=== PATIENT | female | born 2000 | race Caucasian/White ===

== ENCOUNTER 2022-05-04 21:14 | Emergency (ER) | payer SELFPAY ==
[2022-05-05] MEDS ORDERED: Ketorolac Tromethamine 30 MG/ML VIAL ONE (00:02)
[2022-05-05] MEDS ORDERED: Cyclobenzaprine 10 MG TAB ONE (00:02)
== END 2022-05-04 23:40 | disposition home or self-care (01) ==
LOC: CSHERS 21:14
DX: M79.605 Pain in left leg (principal)
CPT/HCPCS: 96372

== ENCOUNTER 2024-02-05 19:09 | Day surgery (SDC) | payer BC ==
[2024-02-05 19:48] VITALS: BMI 39.4
[2024-02-05] MEDS ORDERED: hydrALAZINE 20 MG/ML VIAL SLOW IVP PRN (19:52)
[2024-02-05] MEDS: diphenhydrAMINE 50 MG/ML VIAL IVP PRN (20:15)
[2024-02-05] MEDS: Metoclopramide HCl 10 MG (2 mL) VIAL IVP SCH (20:16)
== END 2024-02-05 21:18 | disposition home or self-care (01) ==
LOC: CSHLD/OP 19:09
PROVIDERS: ATTEND Obstetrics & Gynecology
DX: O99.891 Other specified diseases and conditions complicating pregnancy (principal); R51.9 Headache, unspecified; O99.342 Other mental disorders complicating pregnancy, second trimester; F41.9 Anxiety disorder, unspecified; Z3A.24 24 weeks gestation of pregnancy; Z88.0 Allergy status to penicillin; Z88.5 Allergy status to narcotic agent; Z88.8 Allergy status to other drugs, medicaments and biological substances; Z90.89 Acquired absence of other organs; Z79.899 Other long term (current) drug therapy
CPT/HCPCS: J1200; J2765

== ENCOUNTER 2024-02-17 17:43 | Day surgery (SDC) | payer BC ==
[2024-02-17 18:17] VITALS: BMI 38.2
[2024-02-17] MEDS ORDERED: hydrALAZINE 20 MG/ML VIAL SLOW IVP PRN (19:03)
[2024-02-17 19:41] LABS: #Basophils 0.08 10x3/uL (0.0-0.2); #Eosinphils 0.14 10x3/uL (0.0-0.5); #Monocytes 1.39 10x3/uL (0.0-1.1); #Neutrophils 12.66 10x3/uL (1.5-8.4); %Basophils 0.4 % (0.0-2.0); %Eosinophils 0.7 % (0.0-6.0); %Lymphocytes 23.2 % (18.0-47.0); %Monocytes 7.4 % (0.0-10.0); %Neutrophils 67.8 % (40.0-75.0); Hematocrit 34.3 % (34.9-44.5); Hemoglobin 12.1 g/dL (12.0-15.5); Mean Corpuscular HGB CONC 35.3 g/dL (32.0-36.0); Mean Corpuscular Hemoglobin 30.9 pg (27.0-33.0); Mean Corpuscular Volume 87.5 fL (81.6-98.3); Mean Platelet Volume 10.5 fL (7.4-10.4); Platelet Count 282 10x3/uL (150-450); RBC Distribution Width 12.6 % (11.5-14.5); Red Blood Cell (RBC) Count 3.92 10x6/uL (3.90-5.03); White Blood Cell (WBC) Count 18.7 10x3/uL (3.5-10.5)
[2024-02-17 19:53] LABS: ALT (SGPT) 13 U/L (8-55); AST (SGOT) 15 U/L (5-34); Albumin 3.2 g/dL (3.5-5.0); Alkaline Phosphatase 51 U/L (40-110); Anion Gap 14 mmol/L (10-20); BUN (Urea Nitrogen) 4 mg/dL (7.0-18.7); Bilirubin, Total 0.2 mg/dL (0.2-1.2); Calc. Creatinine Clearance 257 mL/min (70-130); Calcium 9.4 mg/dL (7.8-10.44); Carbon Dioxide 21 mmol/L (22-29); Chloride 106 mmol/L (98-107); Estimated GFR 133; Globulin 3.4 g/dL (2.4-3.5); Glucose 82 mg/dL (70-105); Potassium 3.8 mmol/L (3.5-5.1); Protein, Total 6.6 g/dL (6.0-8.3); Sodium 137 mmol/L (136-145)
[2024-02-17 19:55] LABS: Creatinine, Urine 41.41 mg/dL (47-110); Protein, Urine Random Quant Less than 10 mg/dL (1-14)
== END 2024-02-17 20:15 | disposition home or self-care (01) ==
LOC: CSHLD/OP 17:43
PROVIDERS: ATTEND Obstetrics & Gynecology
DX: O99.891 Other specified diseases and conditions complicating pregnancy (principal); R51.9 Headache, unspecified; O99.212 Obesity complicating pregnancy, second trimester; O10.912 Unspecified pre-existing hypertension complicating pregnancy, second trimester; H53.8 Other visual disturbances; Z88.8 Allergy status to other drugs, medicaments and biological substances; Z88.5 Allergy status to narcotic agent; Z88.0 Allergy status to penicillin; Z3A.25 25 weeks gestation of pregnancy; Z79.899 Other long term (current) drug therapy
CPT/HCPCS: 36415; 80053; 82570; 84156; 85025

== ENCOUNTER 2024-03-15 09:03 | Emergency (ER) | payer BC ==
[2024-03-15] MEDS ORDERED: Morphine 2 MG/ML VIAL ONE (10:30)
[2024-03-15] MEDS ORDERED: Acetaminophen 325 MG TAB ONE (10:31)
== END 2024-03-15 11:15 | disposition home or self-care (01) ==
LOC: CSHERS 09:03
DX: R25.2 Cramp and spasm (principal)
CPT/HCPCS: 36415; 85379; 96372; J2272

== ENCOUNTER 2024-03-17 18:48 | Emergency (ER) | payer BC ==
[2024-03-17 19:10] LABS: Bilirubin Neg (Negative); Blood, Urine Negative (Negative); Clarity Clear (Clear); Glucose, Urine (Dipstick) Normal (Negative); Ketone, Urine Negative (Negative); Leukocyte Negative (Negative); Nitrite Negative (Negative); Protein, Urine (Dipstick) Negative (Neg-Trace); Specific Gravity, Urine 1.015 (1.005-1.030); Urobilinogen Normal mg/dL (Less than 2); pH, Urine 6.5 (5.0-9.0)
[2024-03-17 19:28] LABS: Bacteria/HPF 1+ HPF (None Seen); CAUTI Indications for Culture Pregnancy; RBC/HPF None Seen HPF (0-3); Squamous Epithelial 0-3 HPF (0-3); WBC/HPF None Seen HPF (0-3)
[2024-03-17 19:29] LABS: Urine Culture Reflex Yes Yes
[2024-03-17] MEDS ORDERED: Morphine 4 MG/ML VIAL ONE (20:02)
== END 2024-03-17 21:50 | disposition home or self-care (01) ==
LOC: CSHERS 18:48
DX: O99.891 Other specified diseases and conditions complicating pregnancy (principal); M54.42 Lumbago with sciatica, left side; O99.213 Obesity complicating pregnancy, third trimester; Z3A.30 30 weeks gestation of pregnancy
CPT/HCPCS: 72148; 81001; 87086; 96372; J2272

== ENCOUNTER 2024-04-08 17:12 | Day surgery (SDC) | payer BC ==
[2024-04-08 17:36] VITALS: BMI 38.9
[2024-04-08] MEDS ORDERED: hydrALAZINE 20 MG/ML VIAL SLOW IVP PRN (18:08)
[2024-04-08] MEDS ORDERED: Acetaminophen 500 MG TAB PO PRN (18:09)
[2024-04-08] MEDS ORDERED: Acetaminophen 500 MG TAB PO SCH (18:15)
== END 2024-04-08 19:08 | disposition home or self-care (01) ==
LOC: CSHLD/OP 17:12
PROVIDERS: ATTEND Obstetrics & Gynecology
DX: O47.03 False labor before 37 completed weeks of gestation, third trimester (principal); O99.343 Other mental disorders complicating pregnancy, third trimester; F41.9 Anxiety disorder, unspecified; Z79.899 Other long term (current) drug therapy; Z88.5 Allergy status to narcotic agent; Z88.0 Allergy status to penicillin; Z88.8 Allergy status to other drugs, medicaments and biological substances
CPT/HCPCS: 99282

== ENCOUNTER 2024-05-07 09:27 | Day surgery (SDC) | payer BC ==
[2024-05-07 10:16] VITALS: BMI 40.7
[2024-05-07] MEDS ORDERED: Ondansetron PF 4 MG/2 ML Vial ONE (10:27)
[2024-05-07] MEDS: Dextrose 5%-Lactated Ringers 1,000 ML IV SCH (11:20)
[2024-05-07] MEDS: Ondansetron PF 4 MG/2 ML Vial IVP SCH (11:20)
[2024-05-07] MEDS: Metoclopramide HCl 10 MG (2 mL) VIAL IVP SCH (11:20)
== END 2024-05-07 12:24 | disposition home or self-care (01) ==
LOC: CSHLD/OP 09:27
PROVIDERS: ATTEND Obstetrics & Gynecology
DX: O99.613 Diseases of the digestive system complicating pregnancy, third trimester (principal); K52.9 Noninfective gastroenteritis and colitis, unspecified; O21.2 Late vomiting of pregnancy; O99.891 Other specified diseases and conditions complicating pregnancy; R51.9 Headache, unspecified; Z79.899 Other long term (current) drug therapy; Z88.5 Allergy status to narcotic agent; Z88.2 Allergy status to sulfonamides; Z88.8 Allergy status to other drugs, medicaments and biological substances; Z3A.37 37 weeks gestation of pregnancy
CPT/HCPCS: 96360; 96361; 96374; 99282; J2405; J2765

== ENCOUNTER 2024-05-18 14:48 | Day surgery (SDC) | payer BC ==
[2024-05-18 15:19] VITALS: BMI 40.2
[2024-05-18] MEDS ORDERED: hydrALAZINE 20 MG/ML VIAL SLOW IVP PRN (15:41)
== END 2024-05-18 17:00 | disposition home or self-care (01) ==
LOC: CSHLD/OP 14:48
PROVIDERS: ATTEND Obstetrics & Gynecology
DX: O99.891 Other specified diseases and conditions complicating pregnancy (principal); R10.2 Pelvic and perineal pain; O99.343 Other mental disorders complicating pregnancy, third trimester; F32.A Depression, unspecified; O36.8330 Maternal care for abnormalities of the fetal heart rate or rhythm, third trimester, not applicable or unspecified; Z88.5 Allergy status to narcotic agent; Z88.1 Allergy status to other antibiotic agents; Z88.0 Allergy status to penicillin; Z3A.38 38 weeks gestation of pregnancy
CPT/HCPCS: 99282

== ENCOUNTER 2024-05-20 16:06 | Inpatient (IN) | payer BC ==
[2024-05-20] MEDS ORDERED: hydrALAZINE 20 MG/ML VIAL SLOW IVP PRN (21:13)
[2024-05-20] MEDS ORDERED: Ibuprofen 800 MG TAB PO PRN (21:13)
[2024-05-20] MEDS ORDERED: Lidocaine 1% (PF) 30 ML VIAL SC PRN (21:13)
[2024-05-20] MEDS ORDERED: HYDROcodone/Acetaminophen 5/325 mg Tablet PO PRN ×2 (21:13)
[2024-05-20] MEDS ORDERED: Promethazine HCl 25 MG/ML VIAL IM PRN (21:13)
[2024-05-20] MEDS ORDERED: Lactated Ringer's 1,000 ML IV SCH (21:13)
[2024-05-20] MEDS ORDERED: Oxytocin 30 units/NS 500 ML 500 ML IV SCH ×3 (21:13)
[2024-05-20 21:55] VITALS: BMI 41.2
[2024-05-20] MEDS ORDERED: Misoprostol 100 MCG TAB VAG SCH (22:00)
[2024-05-20 23:04] LABS: Hemoglobin 11.9 g/dL (12.0-15.5); Mean Corpuscular Hemoglobin 27.7 pg (27.0-33.0); Mean Corpuscular Volume 81.6 fL (81.6-98.3); Mean Platelet Volume 11.7 fL (7.4-10.4); Platelet Count 285 10x3/uL (150-450); RBC Distribution Width 13.3 % (11.5-14.5); Red Blood Cell (RBC) Count 4.29 10x6/uL (3.90-5.03); White Blood Cell (WBC) Count 16.9 10x3/uL (3.5-10.5)
[2024-05-20 23:42] LABS: HBsAg Index 0.24 S/CO (0-0.99); Hep B Surf Ag - L&D Non-Reactive S/CO (NonReactive)
[2024-05-20 23:43] LABS: Syphilis Antibody Nonreactive (Nonreactive); Syphilis Antibody Index 0.05 S/CO (<1.00 Non-Reactive)
[2024-05-21 00:04] LABS: ALT (SGPT) 7 U/L (8-55); AST (SGOT) 16 U/L (5-34); Alkaline Phosphatase 182 U/L (40-110); Anion Gap 15 mmol/L (10-20); BUN (Urea Nitrogen) 8 mg/dL (7.0-18.7); Bilirubin, Total 0.3 mg/dL (0.2-1.2); Calc. Creatinine Clearance 304 mL/min (70-130); Calcium 9.9 mg/dL (7.8-10.44); Carbon Dioxide 18 mmol/L (22-29); Chloride 107 mmol/L (98-107); Estimated GFR 135; Globulin 3.2 g/dL (2.4-3.5); Glucose 69 mg/dL (70-105); Potassium 3.8 mmol/L (3.5-5.1); Protein, Total 6.2 g/dL (6.0-8.3); Sodium 136 mmol/L (136-145)
[2024-05-21] MEDS: Zolpidem Tartrate 5 MG TAB PO SCH (00:50)
[2024-05-21] MEDS: fentaNYL 50 mcg/mL 1 mL Vial SLOW IVP PRN (02:00)
[2024-05-21] MEDS: Ondansetron PF 4 MG/2 ML Vial IVP PRN (02:01)
[2024-05-21] MEDS: fentaNYL 2 mcg/Ropivacaine 0.2% Epidural 100 ML CADD EPIDURAL SCH (03:35)
[2024-05-21] MEDS ORDERED: Moisturizing Cream (Eucerin) 113 GM JAR TOP PRN (03:52)
[2024-05-21] MEDS ORDERED: Ondansetron PF 4 MG/2 ML Vial IVP PRN ×2 (03:52→13:18)
[2024-05-21] MEDS ORDERED: Lactated Ringer's 500 ML IV PRN (03:52)
[2024-05-21] MEDS ORDERED: Acetaminophen 325 MG TAB PO PRN (03:52)
[2024-05-21] MEDS ORDERED: diphenhydrAMINE 50 MG/ML VIAL IVP PRN (03:52)
[2024-05-21] MEDS ORDERED: Naloxone HCl 0.4 mg/ml Vial IVP PRN ×2 (03:52)
[2024-05-21] MEDS ORDERED: ePHEDrine Sulfate 50 MG/10 ML VIAL SLOW IVP PRN (03:52)
[2024-05-21] MEDS ORDERED: Promethazine HCl 25 MG/ML VIAL IM PRN (03:52)
[2024-05-21] MEDS ORDERED: Communication Order-Pharmacy FS SCH (04:00)
[2024-05-21] MEDS ORDERED: Bisacodyl 10 MG SUPP PR PRN (13:18)
[2024-05-21] MEDS ORDERED: Preparation H Ointment 28 GM TUBE PR PRN (13:18)
[2024-05-21] MEDS ORDERED: hydrALAZINE 20 MG/ML VIAL SLOW IVP PRN (13:18)
[2024-05-21] MEDS ORDERED: HYDROcodone/Acetaminophen 5/325 mg Tablet PO PRN (13:18)
[2024-05-21] MEDS ORDERED: Milk Of Magnesia 30 ML UDCUP PO PRN (13:18)
[2024-05-21] MEDS ORDERED: Lanolin Ointment 7 GM TUBE TOP PRN (13:18)
[2024-05-21] MEDS ORDERED: diphenhydrAMINE 25 MG CAP PO PRN (13:18)
[2024-05-21] MEDS ORDERED: Oxytocin 30 units/NS 500 ML 500 ML IV SCH (14:30)
[2024-05-21] MEDS: Ibuprofen 800 MG TAB PO SCH (15:16)
[2024-05-21] MEDS: Ferrous Sulfate 325 MG TAB PO SCH (16:55)
[2024-05-21] MEDS: HYDROcodone/Acetaminophen 5/325 mg Tablet PO PRN (17:06)
[2024-05-21] MEDS: fentaNYL/Ropivacaine Epidural 100 ML ONE (18:42)
[2024-05-21] MEDS ORDERED: hydrOXYzine 25 MG TAB PO PRN (20:21)
[2024-05-21] MEDS: Docusate 100 MG CAP PO SCH (21:26)
[2024-05-21] MEDS: Melatonin 3 MG TAB PO PRN (23:30)
[2024-05-22] MEDS: Prenatal Vitamin 1 TAB PO SCH (08:44)
[2024-05-22] MEDS: Ondansetron ODT 4 MG TAB PO PRN (20:40)
[2024-05-23 08:00] VITALS: BP 92/51; TEMP 98.2
== END 2024-05-23 12:30 | disposition home or self-care (01) | DRG 807 ==
LOC: CSHLD 20:51 → EEVIPCON 20:51 → CSHPP 05-21 13:38
PROVIDERS: ADMIT Obstetrics & Gynecology; ATTEND Obstetrics & Gynecology
PROC: 10E0XZZ Delivery of Products of Conception, External Approach (ICD-10-PCS; principal; 2024-05-21)
PROC: 0HQ9XZZ Repair Perineum Skin, External Approach (ICD-10-PCS; 2024-05-21)
DX: O70.0 First degree perineal laceration during delivery (principal); Z37.0 Single live birth; Z3A.39 39 weeks gestation of pregnancy; Z79.899 Other long term (current) drug therapy; Z88.0 Allergy status to penicillin; Z88.5 Allergy status to narcotic agent
CPT/HCPCS: 36415; 51702; 80053; 85027; 86780; 86850; 86900; 86901; 87340; J2405; J3010; Q0162

== ENCOUNTER 2024-06-06 18:07 | Emergency (ER) | payer BC ==
[2024-06-06] MEDS ORDERED: diphenhydrAMINE 50 MG/ML VIAL ONE (18:41)
[2024-06-06] MEDS ORDERED: Metoclopramide HCl 10 MG (2 mL) VIAL ONE (18:42)
[2024-06-06 19:22] LABS: #Basophils 0.11 10x3/uL (0.0-0.2); #Eosinophils 0.31 10x3/uL (0.0-0.5); #Monocytes 0.83 10x3/uL (0.0-1.1); %Basophils 0.9 % (0.0-2.0); %Eosinophils 2.5 % (0.0-6.0); %Lymphocytes 37.6 % (18.0-47.0); %Monocytes 6.8 % (0.0-10.0); %Neutrophils 51.9 % (40.0-75.0); Hematocrit 41.7 % (34.9-44.5); Hemoglobin 13.7 g/dL (12.0-15.5); Mean Corpuscular HGB CONC 32.9 g/dL (32.0-36.0); Mean Corpuscular Hemoglobin 27.4 pg (27.0-33.0); Mean Corpuscular Volume 83.4 fL (81.6-98.3); Mean Platelet Volume 10.3 fL (7.4-10.4); Platelet Count 317 10x3/uL (150-450); RBC Distribution Width 13.2 % (11.5-14.5); White Blood Cell (WBC) Count 12.2 10x3/uL (3.5-10.5)
[2024-06-06 19:33] LABS: ALT (SGPT) 34 U/L (8-55); AST (SGOT) 23 U/L (5-34); Albumin 3.7 g/dL (3.5-5.0); Alkaline Phosphatase 103 U/L (40-110); Anion Gap 14 mmol/L (10-20); BUN (Urea Nitrogen) 13 mg/dL (7.0-18.7); Bilirubin, Total 0.2 mg/dL (0.2-1.2); Calc. Creatinine Clearance 0 mL/min (70-130); Calcium 9.7 mg/dL (7.8-10.44); Carbon Dioxide 25 mmol/L (22-29); Chloride 107 mmol/L (98-107); Estimated GFR 112; Globulin 3.3 g/dL (2.4-3.5); Glucose 86 mg/dL (70-105); INR-International Normal Ratio 1.1; PTT 28.7 sec (22.0-33.0); Potassium 3.9 mmol/L (3.5-5.1); Prothrombin Time 11.7 sec (9.5-12.1); Sodium 142 mmol/L (136-145)
[2024-06-06 19:39] LABS: Troponin I Less than 0.010 ng/mL (< 0.028)
[2024-06-06 20:00] LABS: Bilirubin Neg (Negative); Blood, Urine 250 (Negative); Clarity Clear (Clear); Glucose, Urine (Dipstick) Normal (Negative); Ketone, Urine Negative (Negative); Leukocyte 500 (Negative); Nitrite Negative (Negative); Protein, Urine (Dipstick) 15 mg/dl (Neg-Trace); Urobilinogen Normal mg/dL (Less than 2)
[2024-06-06 20:10] LABS: Amphetamine Not Detected (NotDetected); Barbiturates Screen Not Detected (NotDetected); Benzodiazepine Screen Not Detected (NotDetected); Cocaine Metabolite Screen Not Detected (NotDetected); Methadone Not Detected (NotDetected); Methamphetamine Not Detected (NotDetected); Opiate Screen Not Detected (NotDetected); Oxycodone Screen Not Detected (NotDetected); Phencyclidine (PCP) Not Detected (NotDetected); THC/Cannabinoid Screen Not Detected (NotDetected); Tricyclic Screen Not Detected (NotDetected)
[2024-06-06 20:12] LABS: CAUTI Indications for Culture Pregnancy
[2024-06-06 20:13] LABS: Bacteria/HPF 1+ HPF (None Seen); Squamous Epithelial 0-3 HPF (0-3)
[2024-06-06 20:15] LABS: Urine Culture Reflex Yes Yes
== END 2024-06-06 21:17 | disposition home or self-care (01) ==
LOC: CSHERS 18:07
DX: R51.9 Headache, unspecified (principal); Z55.6 Problems related to health literacy; Z75.3 Unavailability and inaccessibility of health-care facilities
CPT/HCPCS: 36415; 70450; 80053; 80306; 81001; 83735; 84484; 85025; 85610; 85730; 87086; 93005; 93010; 96365; 96375; J1200; J2765

== ENCOUNTER 2024-09-09 10:15 | Emergency (ER) | payer BC ==
[2024-09-09] MEDS ORDERED: diphenhydrAMINE 25 MG CAP ONE (10:22)
[2024-09-09] MEDS ORDERED: predniSONE 20 MG TAB ONE (10:22)
== END 2024-09-09 11:06 | disposition home or self-care (01) ==
LOC: CSHERS 10:15
DX: L50.0 Allergic urticaria (principal)
CPT/HCPCS: 99283; J7512